=== PATIENT | female | born 1995 | race Two or more races ===

== ENCOUNTER 2021-12-06 12:56 | Emergency (ER) | payer SELFPAY ==
[~2021-12-06] VITALS: Ht 172.7 cm; Wt 76.2 kg
[2021-12-06] MEDS ORDERED: AUGMENTIN 500-1 EACH PO ×2 (13:36→13:50)
[2021-12-06] MEDS ORDERED: NAPROSYN500 MG PO ×2 (13:37→13:50)
[2021-12-06] MEDS ORDERED: KETOROLAC TROME10 MG BLADIN (13:50)
== END 2021-12-06 14:56 | disposition home or self-care (01) ==
LOC: ER 13:09
DX: K08.89 Other specified disorders of teeth and supporting structures (principal); K02.9 Dental caries, unspecified
CPT/HCPCS: 99282